=== PATIENT | female | born 1995 ===

== ENCOUNTER 2017-10-31 10:40 | Emergency (ER) | payer MEDICAID ==
[2017-10-31] MEDS ORDERED: Tdap Vaccine 0.5 ml Vial (10-64 yrs) IM ONE ×2 (12:17→12:37)
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
[2017-10-31 15:41] VITALS: BP 122/70; PULSE 86; RESP 20; TEMP 98.3; O2SAT 98
== END 2017-10-31 15:41 | disposition home or self-care (01) ==
LOC: H.ER 10:40
DX: S00.81XA Abrasion of other part of head, initial encounter (principal); S50.312A Abrasion of left elbow, initial encounter; Y04.2XXA Assault by strike against or bumped into by another person, initial encounter; Z23 Encounter for immunization